=== PATIENT | female | born 1975 | race Caucasian/White ===

== ENCOUNTER 2019-06-30 12:35 | Emergency (ER) | payer SELFPAY ==
[~2019-06-30] VITALS: Ht 175.3 cm; Wt 83.9 kg
--- OUTSIDE RECORDS SUMMARY | 2019-06-30 12:38 | XMS REPORT | Summary of Care ---
Author Author [facility] - Health Organization [facility] - Health Address Unknown Phone Unavailable Care Team Providers Care Circuit Breaker Assembler Name Role Phone Pcp, Patient Does Not Have A PCP Reason for Visit * Reason Comments Forms Encounter Details Care Team Description Date Type Department Holly Holm MD [address] [id number] Forms 06/17/[address] [phone] Allergies No Known Allergiesdocumented as of this encounter (statuses as of 06/23/2019) Medications No known medicationsdocumented as of this encounter (statuses as of 06/23/2019) Active Problems No known active problemsdocumented as of this encounter (statuses as of 06/23/2019) Social History Date Tobacco Use Types Packs/Day Years Used Never Smoker Smokeless Tobacco: Never Used Sex Assigned at Date Recorded Not on file Industry Job Start Date Occupation Not on file Not on file Not on file Travel End Travel History Travel Start No recent travel history available. documented as of this encounter Last Filed Vital Signs Not on filedocumented in this encounter Plan of Treatment Care Team Description Date Type Specialty Holly Holm MD [address] [address]153 09/08/2019 Office Visit Ophthalmology Health Maintenance Due Date Last Done Comments DTaP,Tdap,and Td Vaccines 1988 (1 - Tdap) PAP SMEAR 1998 Breast Cancer Screening 2017 (MAMMOGRAM) INFLUENZA VACCINE (#1) 2018 PNEUMOCOCCAL 0-64 YEARS Aged Out No longer eligible based COMBINED SERIES on patient's age to complete this topic documented as of this encounter Results Not on filedocumented in this encounter Insurance Type Payer Benefit Subscriber ID Effective Phone Address Plan / Dates Group HMO/PPO/POS LEONID JAQUEZ II [id number] 2019-P resent documented as of this encounter
--- OUTSIDE RECORDS SUMMARY | 2019-06-30 12:38 | XMS REPORT | Summary of Care ---
Author Author [facility] - Health Organization [facility] - Health Address Unknown Phone Unavailable Care Team Providers Care Toter Name Role Phone Pcp, Patient Does Not Have A PCP Reason for Visit * Reason Comments Foreign Body In Eye Encounter Details Care Team Description Date Type Department Holly Holm MD [address] [address] [phone] Viral conjunctivitis of right eye (Primary Dx); Dry eye; Wears contact lenses 06/02/2019 Office Visit [facility] [address] [phone] Allergies No Known Allergiesdocumented as of this encounter (statuses as of 06/02/2019) Medications No known medicationsdocumented as of this encounter (statuses as of 06/02/2019) Active Problems No known active problemsdocumented as of this encounter (statuses as of 06/02/2019) Social History Date Tobacco Use Types Packs/Day Years Used Never Smoker Smokeless Tobacco: Never Used Sex Assigned at Date Recorded Not on file Industry Job Start Date Occupation Not on file Not on file Not on file Travel End Travel History Travel Start No recent travel history available. documented as of this encounter Last Filed Vital Signs Reading Time Taken Comments Vital Sign - - Blood Pressure - - Pulse - - Temperature - - Respiratory Rate - - Oxygen Saturation - - Inhaled Oxygen Concentration 90.7 kg (200 lb) 06/02/2019 9:14 AM CDT Weight - - Height - - Body Mass Index documented in this encounter Patient Instructions * Patient Instructions* Holly Holm MD - 06/02/2019 8:45 AM CDT Dry Eye Diagnosis and Treatment Your etymology teacher will begin with an eye exam to look at your eyelids, the wilkinson rface of the eye and how you blink. There are many different tests that help elham gnose dry eyes. Your etymology teacher may do a test that measures how quickly you produce tears. How Is Dry Eye Treated? Adding Tears Your etymology teacher might tell you to use artificial tears. These are eye drops that are like your own tears. You can use artificial tears as often as you need to. You can buy artificial tears without a prescription. There are many brands, a few of which are listed below. Try a few until you find a brand that works be st for you. Some are in drop form while others are thicker, gel formulations. Di fferent people prefer different ones. Do not use anything that claims it 'gets t he red out' (like Visine). Refresh Soothe Essie Tears Systane Thera Tears Genteal If you use artificial tears more than four times a day or are allergic to preser vatives, you should use preservative-free tears. This is because if the tears wi th preservatives are used a lot, these chemicals may start to irritate your eyes . If you wake up with dry eye symptoms you may benefit from a lubricating nighttim e gel or ointment like Lacilube or a similar medication that comes in a tube. It does blur the vision, so plan on doing this just before bed. Squeeze a small am ount (about the size of a grain of rice) into the pocket your lower lid forms an d let it melt over the eye. Saving Tears Your etymology teacher may suggest blocking your tear ducts. This makes your natur al tears stay in your eyes longer. Tiny silicone or gel plugs (called punctal pl ugs) may be inserted in your tear ducts. These plugs can be removed later as nee ded. Your etymology teacher could also recommend surgery that permanently closes y our tear ducts. Your etymology teacher might have you use a prescription eye drop medication. This helps your eyes make more of their own tears, like Restasis or Xiidra. Treating Dry Eye Culprits If your eyes are irritated, your etymology teacher can treat those problems. They may recommend: ? prescription eye drops or ointments ? warm compresses on the eyes ? massaging your eyelids ? certain eyelid harness cutter documented in this encounter Progress Notes * Holly Homl MD - 06/02/2019 8:45 AM CDT Ophthalmology Clinic Note 06/02/2019 09:45 CC: Chief Complaint Patient presents with Foreign Body In Eye HPI: Amparo Reeder is a 44 year old female presents for FBS OD PMH: History reviewed. No pertinent past medical history. POH: Refractive error ROS: Review of systems done by desktop technician during this encounter. No changes noted. Meds: No current outpatient medications on file. 1. Viral conjunctivitis of right eye 2. Dry eye 3. Wears contact lenses Assessment/Plan: 44 year old female seen by ophthalmology for Foreign Body In Eye 1. Viral conjunctivitis of right eye - discussed natural course, likely worst of redness has passed however counseled - would recommend frequent handwashing and not sharing towels/pillow cases - PFATs as below 2. Dry eye - likely associated with recent viral conjunctivitis - discussed natural course and environmental factors - recommend artificial tears 2-4x/day and preservative free if more frequent (trevino ndout provided) - can consider gel drops or ointments 3. Wears contact lenses - HOLD contact lenses OD Follow up 1 months, DFE, sooner PRN Holly Holm MD Department of Ophthalmology and Visual Sciences documented in this encounter Plan of Treatment Health Maintenance Due Date Last Done Comments DTaP,Tdap,and Td Vaccines 1988 (1 - Tdap) PAP SMEAR 1998 Breast Cancer Screening 2017 (MAMMOGRAM) INFLUENZA VACCINE (#1) 2018 PNEUMOCOCCAL 0-64 YEARS Aged Out No longer eligible based COMBINED SERIES on patient's age to complete this topic documented as of this encounter Results Not on filedocumented in this encounter Visit Diagnoses Diagnosis Viral conjunctivitis of right eye - Primary Dry eye Wears contact lenses Problems with sight documented in this encounter Insurance Type Payer Benefit Subscriber ID Effective Phone Address Plan / Dates Group HMO/PPO/POS [employer] II [id number] 2019-P resent documented as of this encounter
--- OUTSIDE RECORDS SUMMARY | 2019-06-30 12:38 | XMS REPORT ---
Author Author [facility] Address Unknown Phone Unavailable Care Team Providers Care Gin Inspector Name Role Phone Unavailable Unavailable Problems This patient has no known problems. Allergies, Adverse Reactions, Alerts This patient has no known allergies or adverse reactions. Medications This patient has no known medications.
--- OUTSIDE RECORDS SUMMARY | 2019-06-30 12:38 | XMS REPORT | Summary of Care ---
Author Author [facility] - Health Organization [facility] - Health Address Unknown Phone Unavailable Care Team Providers Care Durability Technician Name Role Phone Pcp, Patient Does Not Have A PCP Reason for Visit * Reason Comments Foreign Body In Eye Encounter Details Care Team Description Date Type Department Holly Holm MD [address] [address] [phone] Viral conjunctivitis of right eye (Primary Dx); Dry eye; Wears contact lenses 06/02/2019 Office Visit [facility] [address] [address] Allergies No Known Allergiesdocumented as [...] CDT Dry Eye Diagnosis and Treatment Your loan interviewer will begin with an eye exam to look at your eyelids, the wilkinson rface of the eye and how you blink. There are many different tests that help elham gnose dry eyes. Your loan interviewer may do a test that measures how quickly you produce tears. How Is Dry Eye Treated? Adding Tears Your loan interviewer might tell you to use artificial tears. [...] melt over the eye. Saving Tears Your loan interviewer may suggest blocking your tear ducts. This makes your natur al tears stay in your eyes longer. Tiny silicone or gel plugs (called punctal pl ugs) may be inserted in your tear ducts. These plugs can be removed later as nee ded. Your loan interviewer could also recommend surgery that permanently closes y our tear ducts. Your loan interviewer might have you use a prescription eye drop medication. This helps your eyes make more of their own tears, like Restasis or Xiidra. Treating Dry Eye Culprits If your eyes are irritated, your loan interviewer can treat those problems. They may recommend: ? prescription eye drops or ointments ? warm compresses on the eyes ? massaging your eyelids ? certain eyelid disk recordist documented in this encounter Progress Notes * Holly Holm MD - 06/02/2019 8:45 AM CDT Ophthalmology Clinic Note 06/02/2019 09:45 CC: Chief Complaint Patient presents with Foreign Body In Eye HPI: Amparo Reeder is a 44 year old female presents for FBS OD PMH: History reviewed. No pertinent past medical history. POH: Refractive error ROS: Review of systems done by solar field service technician during this encounter. No changes noted. [...] / Dates Group HMO/PPO/POS [employer] CIGMATT II [id number] 2019-P resent documented as of this encounter
--- OUTSIDE RECORDS SUMMARY | 2019-06-30 12:38 | XMS REPORT | Summary of Care ---
Author Author [facility] - Health Organization [facility] - Health Address Unknown Phone Unavailable Care Team Providers Care Dry Cleaner Name Role Phone Pcp, Patient Does Not Have A PCP Reason for Visit * Reason Comments Notification Encounter Details Care Team Description Date Type Department Holly Holm MD [address] [id number] Notification 06/16/[address] [phone] Allergies No Known Allergiesdocumented as of this encounter (statuses as of 06/17/2019) Medications No known medicationsdocumented as of this encounter (statuses as of 06/17/2019) Active Problems No known active problemsdocumented as of this encounter (statuses as of 06/17/2019) Social History Date Tobacco Use Types Packs/Day [...] Description Date Type Specialty Holly Holm MD [address] [id number] 09/08/2019 Office Visit Ophthalmology Health Maintenance Due [...] Phone Address Plan / Dates Group HMO/PPO/POS LEOIND JAQUEZ II [id number] 2019-P resent documented as of this encounter
--- OUTSIDE RECORDS SUMMARY | 2019-06-30 12:38 | XMS REPORT | Summary of Care ---
Author Author [facility] - Health Organization [facility] - Health Address Unknown Phone Unavailable Care Team Providers Care Chip Loft Worker Name Role Phone Pcp, Patient Does Not Have A PCP Encounter Details Care Team Description Date Type Department Doctor Unassigned, [place] [address] [place] [address] 06/23/2019 Orders Only [facility] [address] [place] [address] Allergies No Known Allergiesdocumented as of this [...] Description Date Type Specialty Holly Holm MD [address] [address] [phone] 09/08/2019 Office Visit Ophthalmology Health Maintenance Due Date Last Done Comments DTaP,Tdap,and Td Vaccines 1988 (1 - Tdap) PAP SMEAR 1998 Breast Cancer Screening 2017 (MAMMOGRAM) INFLUENZA VACCINE (#1) 2018 PNEUMOCOCCAL 0-64 YEARS Aged Out No longer eligible based COMBINED SERIES on patient's age to complete this topic documented as of this encounter Procedures Comments Procedure Name Priority Date/Time Associated Diagnosis WORKERS COMPENSATION Routine 06/23/2019 12:01 AM CDT documented in this encounter Results Not on filedocumented in this encounter Insurance Type Payer Benefit Subscriber ID Effective Phone Address Plan / Dates Group HMO/PPO/POS LEONID JAQUEZ II [id number] 2019-P resent documented as of this encounter
[2019-06-30 13:24] LABS: BASOPHILS % 0.5 % (0.0-1.0); EOSINOPHILS # (AUTO) 0.1 (0.0-0.4); EOSINOPHILS % 1.2 % (0.0-6.0); HEMATOCRIT 40.8 % (34.2-44.1); HEMOGLOBIN 13.3 g/dL (12.0-16.0); LYMPHOCYTES # (AUTO) 1.1 (1.0-3.2); LYMPHOCYTES % 18.3 % (18.0-39.1); MEAN CORPUSCULAR HEMOGLOBIN 30.7 pg (28-32); MEAN CORPUSCULAR HGB CONC 32.6 g/dL (31-35); MEAN CORPUSCULAR VOLUME 94.2 fL (81-99); MONOCYTES # (AUTO) 0.4 (0.2-0.8); MONOCYTES % 7.2 % (4.4-11.3); NEUTROPHILS # (AUTO) 4.2 (2.1-6.9); NEUTROPHILS % 72.6 % (38.7-80.0); PLATELET COUNT 247 x10e3/uL (140-360); RED BLOOD COUNT 4.33 x10e6/uL (3.6-5.1); RED CELL DISTRIBUTION WIDTH 14.1 % (11.7-14.4)
--- NOTE | 2019-06-30 13:45 | Diagnostic Imaging Report ---
EXAM: CHEST 2 VIEWS DATE: 06/30/2019 12:39 PM INDICATION: Chest pain COMPARISON: None FINDINGS: The trachea is midline. The lungs are symmetrically expanded without evidence for large focal consolidation, pneumothorax, or significant pleural effusion. The cardiomediastinal silhouette and pulmonary vasculature are within normal limits. No acute osseous abnormality is identified. The surrounding soft tissues are unremarkable. IMPRESSION: No acute cardiopulmonary process identified. Signed by: Dr. Magdi Larose MD on 06/30/2019 1:41 PM
[2019-06-30 13:54] LABS: ALANINE AMINOTRANSFERASE 55 IU/L (0-55); ALBUMIN 4.2 g/dL (3.5-5.0); ALBUMIN/GLOBULIN RATIO 1.4 (0.8-2.0); ALKALINE PHOSPHATASE 96 IU/L (40-150); BLOOD UREA NITROGEN 14 mg/dL (7-26); BUN/CREATININE RATIO 14 (6-25); CALCIUM 8.8 mg/dL (8.4-10.2); CARBON DIOXIDE 24 mmol/L (22-29); CHLORIDE 98 mmol/L (98-107); CREATINE KINASE 719 IU/L (29-168); CREATININE, SERUM 1.03 mg/dL (0.57-1.11); EST GLOMERULAR FILTRATION RATE 59 ML/MIN (60-); GLUCOSE 118 mg/dL (74-118); SODIUM 133 mmol/L (136-145)
[2019-06-30] MEDS ORDERED: SODIUM CHLORIDE 0.9% 1000ML 1,000 ML IV SCH (14:30)
[2019-06-30 14:33] LABS: AMPHETAMINES SCREEN,URINE POSITIVE (NEGATIVE); BENZODIAZEPINES SCREEN,URINE POSITIVE (NEGATIVE); PHENCYCLIDINE SCREEN,URINE NEGATIVE (NEGATIVE)
[2019-06-30] MEDS ORDERED: SODIUM CHLORIDE 0.9% 1000ML 1,000 ML IV ONE (15:45)
== END 2019-06-30 16:17 | disposition home or self-care (01) ==
LOC: ER 12:35
DX: R07.89 Other chest pain (principal)
CPT/HCPCS: 36415; 71046; 80053; 80307; 80320; 82550; 82553; 84484; 84702; 85025; 93005; 99284; J7030